=== PATIENT | female | born 1965 | race Caucasian/White ===

== ENCOUNTER 2020-12-13 13:02 | Outpatient (CLI) | payer BC | END 2020-12-13 13:03 | disposition home or self-care (01) | LOC: DTY/OP 13:02 | DX: Z01.818 Encounter for other preprocedural examination (principal); Z68.35 Body mass index [BMI] 35.0-35.9, adult; G47.33 Obstructive sleep apnea (adult) (pediatric); E78.3 Hyperchylomicronemia | CPT/HCPCS: 97802 ==

== ENCOUNTER 2021-01-03 12:10 | Outpatient (CLI) | payer BC | END 2021-01-03 12:11 | disposition home or self-care (01) | LOC: DTY/OP 12:10 | DX: E78.5 Hyperlipidemia, unspecified (principal); G47.33 Obstructive sleep apnea (adult) (pediatric); Z68.35 Body mass index [BMI] 35.0-35.9, adult | CPT/HCPCS: 97802 ==

== ENCOUNTER 2021-02-12 08:10 | Outpatient (CLI) | payer BC | END 2021-02-12 08:11 | disposition home or self-care (01) | LOC: DTY/OP 08:10 | DX: G47.33 Obstructive sleep apnea (adult) (pediatric) (principal); E78.5 Hyperlipidemia, unspecified; Z68.35 Body mass index [BMI] 35.0-35.9, adult | CPT/HCPCS: 97802 ==

== ENCOUNTER 2021-04-11 12:57 | Outpatient (CLI) | payer BC | END 2021-04-11 12:58 | disposition home or self-care (01) | LOC: DTY/OP 12:57 | DX: Z01.818 Encounter for other preprocedural examination (principal); Z68.35 Body mass index [BMI] 35.0-35.9, adult; G47.33 Obstructive sleep apnea (adult) (pediatric); E78.3 Hyperchylomicronemia | CPT/HCPCS: 97802 ==

== ENCOUNTER 2021-05-02 11:21 | Outpatient (CLI) | payer BC | END 2021-05-02 11:22 | disposition home or self-care (01) | LOC: DTY/OP 11:21 | DX: E78.5 Hyperlipidemia, unspecified (principal); G47.33 Obstructive sleep apnea (adult) (pediatric); Z68.35 Body mass index [BMI] 35.0-35.9, adult | CPT/HCPCS: 97802 ==

== ENCOUNTER 2021-06-18 11:46 | Outpatient (CLI) | payer BC ==
[2021-06-18 21:16] LABS: SARS-CoV-2 PCR by NAA Not Detected (NotDetected)
== END 2021-06-18 11:47 | disposition home or self-care (01) ==
LOC: LABBT 11:46
PROVIDERS: ATTEND Surgery
DX: Z20.822 Contact with and (suspected) exposure to COVID-19 (principal)
CPT/HCPCS: U0003; U0005

== ENCOUNTER 2021-06-18 12:00 | Inpatient (IN) | payer BC ==
[2021-06-23] MEDS ORDERED: Scopolamine 1.5 mg/72 hour Patch ONE (11:29)
[2021-06-23] MEDS ORDERED: Enoxaparin Sodium 40 MG/0.4 ML SYRINGE ONE (11:30)
[2021-06-23] MEDS ORDERED: Bupivacaine 0.25% 10 ML VIAL ONE (12:15)
[2021-06-23] MEDS ORDERED: Lidocaine 1% w/Epinephrine 1:100K 20 ML VIAL ONE (12:15)
[2021-06-23] MEDS ORDERED: Midazolam HCl 2 mg/2 ml Vial ONE ×2 (12:18→12:28)
[2021-06-23] MEDS ORDERED: fentaNYL Citrate/PF 100 MCG/2 ML SYRINGE ONE (12:18)
[2021-06-23] MEDS ORDERED: SUGAMMADEX SODIUM 200 MG/2 ML VIAL ONE (12:18)
[2021-06-23] MEDS ORDERED: Sodium Chloride 0.9% 100 ML ONE (12:27)
[2021-06-23] MEDS ORDERED: cefOXitin 2 GM VIAL ONE (12:27)
[2021-06-23] MEDS ORDERED: Lidocaine 1% PF 5 ML VIAL ONE (12:38)
[2021-06-23] MEDS ORDERED: PROPOFOL 200 MG/20 ML VIAL ONE (12:38)
[2021-06-23] MEDS ORDERED: Glycopyrrolate 0.2 MG/ML 5 ML SYRINGE ONE (12:38)
[2021-06-23] MEDS ORDERED: ePHEDrine 50 MG/ML VIAL ONE (12:38)
[2021-06-23] MEDS ORDERED: PHENYLEPHRINE-NS 100 MCG/ML 10 ML SYRINGE ONE (12:38)
[2021-06-23] MEDS ORDERED: Rocuronium Bromide 10 MG/ML (10ML VIAL) ONE (12:38)
[2021-06-23] MEDS ORDERED: diphenhydrAMINE 50 MG/ML VIAL IVP PRN (14:19)
[2021-06-23] MEDS ORDERED: Hydrocodone-Acetamin 15 ML UDCUP PO PRN (14:19)
[2021-06-23] MEDS ORDERED: Promethazine HCl 25 MG/ML VIAL IVPB PRN (14:19)
[2021-06-23] MEDS ORDERED: Ondansetron HCl/PF 4 MG/2 ML Vial IVP PRN (14:19)
[2021-06-23] MEDS ORDERED: Promethazine HCl 25 MG/ML VIAL IM PRN ×2 (14:19)
[2021-06-23] MEDS ORDERED: Dextrose 5% in Water 1,000 ML IV PRN (14:19)
[2021-06-23] MEDS ORDERED: Ondansetron PF 4 MG/2 ML Vial IVP PRN (14:19)
[2021-06-23] MEDS ORDERED: Morphine 2 MG/ML VIAL SLOW IVP PRN (14:19)
[2021-06-23] MEDS ORDERED: Dextrose 50% Abboject 50 ML SYRINGE SLOW IVP PRN (14:19)
[2021-06-23] MEDS ORDERED: hydrALAZINE 20 MG/ML VIAL SLOW IVP PRN (14:19)
[2021-06-23] MEDS ORDERED: Fentanyl 100 MCG/2 ML VIAL ONE ×2 (14:44→15:09)
[2021-06-23] MEDS: D5 1/2 NS w/20 mEq KCL 1,000 ML IV SCH (16:33)
[2021-06-23] MEDS: Ketorolac Tromethamine 30 MG/ML VIAL IVP SCH (18:19)
[2021-06-23 19:39] VITALS: BMI 40.9
[2021-06-24] MEDS: Ketorolac Tromethamine 30 MG/ML VIAL IVP SCH ×2 (00:29→05:18)
[2021-06-24] MEDS: D5 1/2 NS w/20 mEq KCL 1,000 ML IV SCH ×2 (00:30→06:37)
[2021-06-24 05:44] LABS: #Monocytes 0.7 thou/uL (0.11-0.59); #Neutrophils 8.1 thou/uL (1.40-6.50); %Basophils 0.1 % (0.0-1.0); %Eosinophils 0.1 % (0.0-10.0); %Lymphocytes 9.9 % (21.0-51.0); %Monocytes 6.9 % (0.0-10.0); Hemoglobin 13.3 g/dL (12.0-16.0); Mean Corpuscular HGB CONC 33.2 g/dL (32.0-36.0); Mean Corpuscular Hemoglobin 29.9 pg (27.0-31.0); Mean Platelet Volume 6.6 fL (7.4-10.4); Platelet Count 253 thou/uL (130-400); RBC Distribution Width 13.4 % (11.5-14.5); Red Blood Cell (RBC) Count 4.45 mill/uL (4.20-5.40); White Blood Cell (WBC) Count 9.8 thou/uL (4.8-10.8)
[2021-06-24 05:59] LABS: Anion Gap 13 mmol/L (10-20); BUN (Urea Nitrogen) 6 mg/dL (9.8-20.1); Calc. Creatinine Clearance 139 mL/min (70-130); Calcium 8.9 mg/dL (7.8-10.44); Carbon Dioxide 24 mmol/L (22-29); Chloride 104 mmol/L (98-107); Glucose 127 mg/dL (70-105); Potassium 4.6 mmol/L (3.5-5.1); Sodium 136 mmol/L (136-145)
[2021-06-24 08:23] VITALS: BP 130/76; TEMP 97.8
[2021-06-24] MEDS ORDERED: DULoxetine 60 MG CAP PO SCH (09:00)
[2021-06-24] MEDS ORDERED: Enoxaparin Sodium 40 MG/0.4 ML SYRINGE SC SCH (09:00)
[2021-06-24] MEDS ORDERED: Pantoprazole 40 MG VIAL IVP SCH (09:00)
== END 2021-06-24 11:25 | disposition home or self-care (01) | DRG 621 ==
LOC: SURG A 06-23 10:24
PROVIDERS: ADMIT Surgery; ATTEND Surgery
PROC: 0DB64Z3 Excision of Stomach, Percutaneous Endoscopic Approach, Vertical (ICD-10-PCS; principal; 2021-06-23)
PROC: 8E0W4CZ Robotic Assisted Procedure of Trunk Region, Percutaneous Endoscopic Approach (ICD-10-PCS; 2021-06-23)
DX: E66.01 Morbid (severe) obesity due to excess calories (principal); E78.5 Hyperlipidemia, unspecified; F41.1 Generalized anxiety disorder; Z68.41 Body mass index [BMI] 40.0-44.9, adult; Z79.899 Other long term (current) drug therapy; Z90.49 Acquired absence of other specified parts of digestive tract; Z90.710 Acquired absence of both cervix and uterus; Z98.890 Other specified postprocedural states
CPT/HCPCS: 36415; 80048; 85025; 88307; 88342; 94760; C9113; J0694; J1200; J1650; J1885; J2250; J2270; J2704; J3010; J3480; J3490; S0020

== ENCOUNTER 2021-07-11 12:34 | Day surgery (SDC) | payer BC ==
[2021-07-11 13:26] VITALS: BP 134/78
[2021-07-11] MEDS ORDERED: Multivitamins, Adult 10 ML, Thiamine HCl 100 MG, Folic Acid 1 MG in Dextrose 5 %-0.45 %... IV SCH (14:00)
== END 2021-07-11 15:17 | disposition home or self-care (01) ==
LOC: ONC/OP 12:34
PROVIDERS: ATTEND Surgery
DX: E86.0 Dehydration (principal)
CPT/HCPCS: 96365; J3411; J7042